=== PATIENT | male | born 1970 | race African-American/Black ===

== ENCOUNTER 2016-09-22 14:59 | Emergency (ER) | payer OTHER ==
[~2016-09-22] VITALS: Ht 180.3 cm; Wt 83.4 kg
[2016-09-22 15:04] VITALS: TEMP 36.4; Ht 180.3 cm; Wt 83.4 kg
[2016-09-22] MEDS ORDERED: SODIUM CHLORIDE 0.9% 1000ML 1,000 ML IV STA (15:13)
--- NOTE | 2016-09-22 15:25 | EMERGENCY ROOM VISIT NOTE ---
History Report prepared by Memo: Chante Randhawa Under the Supervision of: Dr. John Tobias D.O. First contact with patient: 15:07 Chief Complaint: URINARY SYMPTOMS Stated Complaint: RETENTION CANT GET PAST PROSTATE Nursing Triage Summary: pt reports he had uti given antibiotic and prostate swelled unable to urinate on own. last catheted yesterday History of Present Illness The patient is a 46 year old male who presents to the Emergency Room with complaints of constantly beginning unable to urinate for the past 2 days. The patient on Wednesday was diagnosed with a UTI and had a prostate exam done. He was put on antibiotics. The patient denies having trouble urinating before. He was catheterized yesterday. The patient denies over the counter medication use recently or any other symptoms at this time. He is from [facility]. 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 Review of Systems See HPI for pertinent positives & negatives. A total of 10 systems reviewed and were otherwise negative. Past Medical & Surgical Medical Problems: (1) No chronic problems Family History Seizures Social History Smoking Status: Former Smoker Alcohol Use: none Drug Use: none Housing Status: other (Long-Term) Occupation Status: other (Prisoner ) Current/Historical Medications Scheduled Ibuprofen (Motrin), 400 MG PO TID Sulfa/Trimethoprim (Bactrim Ds 800MG/160MG), 1 TAB PO BID Tamsulosin HCl (Tamsulosin HCl), 0.8 MG PO HS Allergies Coded Allergies: No Known Allergies (Unverified , 09/22/16) Physical Exam Vital Signs Date Time Temp Pulse Resp B/P Pulse Ox O2 Delivery O2 Flow Rate FiO2 09/22/16 17:00 63 14 115/71 98 Room Air 09/22/16 15:04 36.4 65 18 120/70 96 Room Air Physical Exam GENERAL: Patient is awake, alert, and in no acute distress. Patient is resting comfortably and showing no signs of anxiety EYES: The conjunctivae are clear. The pupils are round and reactive. EARS, NOSE, MOUTH AND THROAT: The nose is without any evidence of any deformity. Mucous membranes are moist tongue is midline NECK: The neck is nontender and supple. RESPIRATORY: Normal respiratory effort is noted there is no evidence of wheezing rhonchi or rales CARDIOVASCULAR: Regular rate and rhythm noted there no murmurs rubs or gallops normal S1 normal S2 GASTROINTESTINAL: The abdomen is soft. Bowel sounds are present in all quadrants. Abdomen is nontender BACK: No midline tenderness or or step-off noted range of motion in flexion extension as well as rotation no signs of muscle spasm noted MUSCULOSKELETAL/EXTREMITIES: There is no evidence of gross deformity full range of motion is noted in the hips and shoulders SKIN: There is no obvious evidence of any rash. There are no petechiae, pallor or cyanosis noted. NEUROLOGIC: Patient is awake alert and oriented x3 strength is symmetric patellar reflexes are 2+ bilaterally Medical Decision & Procedures Laboratory Results 09/22/16 16:40 Red Blood Count 4.45, Mean Corpuscular Volume 94.4, Mean Corpuscular Hemoglobin 31.5, Mean Corpuscular Hemoglobin Concent 33.3, Mean Platelet Volume 10.5, Neutrophils (%) (Auto) 31.9, Lymphocytes (%) (Auto) 33.4, Monocytes (%) (Auto) 27.0, Eosinophils (%) (Auto) 7.3, Basophils (%) (Auto) 0.2, Neutrophils # (Auto ) 1.39, Lymphocytes # (Auto) 1.46, Monocytes # (Auto) 1.18, Eosinophils # (Auto ) 0.32, Basophils # (Auto) 0.01 09/22/16 16:40 Test 09/22/16 15:55 09/22/16 16:40 Urine Color DK YELLOW Urine Appearance CLEAR (CLEAR) Urine pH 6.0 (4.5-7.5) Urine Specific [place] 1.035 (1.000-1.030) Urine Protein NEG (NEG) Urine Glucose (UA) NEG (NEG) Urine Ketones TRACE (NEG) Urine Occult Blood NEG (NEG) Urine Nitrite NEG (NEG) Urine Bilirubin NEG (NEG) Urine Urobilinogen NEG (NEG) Urine Leukocyte Esterase TRACE (NEG) Urine WBC (Auto) 5-10 /hpf (0-5) Urine RBC (Auto) 0-4 /hpf (0-4) Urine Hyaline Casts (Auto) 1-5 /lpf (0-5) Urine Epithelial Cells (Auto) 10-20 /lpf (0-5) Urine Bacteria (Auto) NEG (NEG) White Blood Count 4.37 K/uL (4.8-10.8) Red Blood Count 4.45 M/uL (4.7-6.1) Hemoglobin 14.0 g/dL (14.0-18.0) Hematocrit 42.0 % (42-52) Mean Corpuscular Volume 94.4 fL (80-100) Mean Corpuscular Hemoglobin 31.5 pg (25-34) Mean Corpuscular Hemoglobin Concent 33.3 g/dl (32-36) Platelet Count 253 K/uL (130-400) Mean Platelet Volume 10.5 fL (7.4-10.4) Neutrophils (%) (Auto) 31.9 % Lymphocytes (%) (Auto) 33.4 % Monocytes (%) (Auto) 27.0 % Eosinophils (%) (Auto) 7.3 % Basophils (%) (Auto) 0.2 % Neutrophils # (Auto) 1.39 K/uL (1.4-6.5) Lymphocytes # (Auto) 1.46 K/uL (1.2-3.4) Monocytes # (Auto) 1.18 K/uL (0.11-0.59) Eosinophils # (Auto) 0.32 K/uL (0-0.5) Basophils # (Auto) 0.01 K/uL (0-0.2) RDW Standard Deviation 44.1 fL (36.4-46.3) RDW Coefficient of Variation 12.7 % (11.5-14.5) Immature Granulocyte % (Auto) 0.2 % Immature Granulocyte # (Auto) 0.01 K/uL (0.00-0.02) Prothrombin Time 11.4 SECONDS (9.0-12.0) Prothromb Time International Ratio 1.1 (0.9-1.1) Activated Partial Thromboplast Time 32.1 SECONDS (21.0-31.0) Partial Thromboplastin Ratio 1.2 Anion Gap 7.0 mmol/L (3-11) Est Creatinine Clear Calc Drug Dose 74.0 ml/min Estimated GFR () 74.8 Estimated GFR (Non- 64.5 BUN/Creatinine Ratio 13.4 (10-20) Calcium Level 8.8 mg/dl (8.5-10.1) Total Bilirubin 0.2 mg/dl (0.2-1) Direct Bilirubin < 0.1 mg/dl (0-0.2) Aspartate Amino Transf (AST/SGOT) 28 U/L (15-37) Alanine Aminotransferase (ALT/SGPT) 36 U/L (12-78) Alkaline Phosphatase 72 U/L (45-117) Total Creatine Kinase 173 U/L (39-308) Creatine Kinase MB 1.8 ng/ml (0.5-3.6) Creatine Kinase MB Ratio 1.0 (0-3.0) Troponin I < 0.015 ng/ml (0-0.045) Total Protein 7.0 gm/dl (6.4-8.2) Albumin 3.3 gm/dl (3.4-5.0) Lipase 69 U/L (73-393) Laboratory results per my review. Medications Administered Medications (Trade) Dose Ordered Sig/Lina Route Start Time Stop Time Status Last Admin Dose Admin Sodium Chloride (Nss 1000ml) 1,000 ml @ 999 mls/hr Q1H1M STAT IV 09/22/16 15:13 09/22/16 16:13 DC 09/22/16 15:13 999 MLS/HR Tamsulosin HCl (Flomax Cap) 0.4 mg NOW ONCE PO 09/22/16 17:15 09/22/16 17:16 DC 09/22/16 17:23 0.4 MG ECG Indication: other (urinary retention) Rate (beats per minute): 59 Rhythm: sinus bradycardia Findings: nonspecific-ST abn (no acute), PVC Comparison ECG Date: no prior available ED Course 1511: The patient was evaluated in room B5. A complete history and physical examination were performed. 1513: Sodium Chloride 1,000 ml @ 999 mls/hr IV. 1715: Flomax Cap 0.4 mg PO. 1745: Upon reevaluation, the patient is hemodynamically stable. I discussed the results and treatment plan with him. He verbalized agreement of the treatment plan. He was discharged home. Medical Decision Prior records/ancillary studies reviewed. Triage Nursing notes reviewed. Differential diagnosis: Etiologies such as renal colic, infections, inflammatory urethritis, prostate pathology, UTI, as well as others were entertained. The patient is a 46-year-old male whose had intermittent problems with urinary retention over the last 3-4 days. The patient was seen at the [facility] at the correction and was started on antibiotics and Flomax. The patient presents to the emergency department today with urinary retention. He does not appear to have signs of urinary tract infection on urinalysis but he has been taking Bactrim for the last few days. The patient had a Iyer catheter placed with good resolution of his symptoms. He does not appear to be an obstructive uropathy. I discussed the patient's laboratory results with him. The patient was given follow-up information for urologist but given his current living situations they may prefer to refer him to a urologist on their own schedule. They were encouraged to continue all medications as prescribed and drink plenty clear liquids. Otherwise she was encouraged to follow-up with urologist as soon as possible. He was also encouraged to return to the emergency department immediately if symptoms change worsen or the need arises. Impression Primary Impression: Urinary retention Scribe Attestation The scribe's documentation has been prepared under my direction and personally reviewed by me in its entirety. I confirm that the note above accurately reflects all work, treatment, procedures, and medical decision making performed by me. Departure Information Dispostion Home / Self-Care Referrals [facility] (PCP) Forms HOME CARE DOCUMENTATION FORM, IMPORTANT VISIT INFORMATION Patient Instructions ED Catheter Care Iyer, ED Retention Urinary Male, My [facility] Additional Instructions Continue all medications as prescribed. Continue taking the Bactrim as well as the Flomax as directed. Call to schedule a follow-up appointment with the urologist. Drink plenty clear liquids.
[2016-09-22] MEDS ORDERED: FLM4 PO (15:26)
[2016-09-22] MEDS ORDERED: IBUP-1459 PO (15:26)
[2016-09-22] MEDS ORDERED: SULF800T23 PO (15:26)
[2016-09-22 16:22] LABS: URINE APPEARANCE CLEAR (CLEAR); URINE COLOR DK YELLOW; URINE NITRITE NEG (NEG); URINE SPECIFIC GRAVITY 1.035 (1.000-1.030); UROBILINOGEN NEG (NEG)
[2016-09-22 16:48] LABS: MANUAL MICROSCOPIC REQUIRED? NO; REVIEW REQ? NO; URINE BILIRUBIN NEG (NEG)
[2016-09-22 16:56] LABS: BASO % 0.2 %; BASO ABS # 0.01 K/uL (0-0.2); COMPLETE YES; EOS % 7.3 %; IG% 0.2 %; LYMPH % 33.4 %; LYMPH ABS # 1.46 K/uL (1.2-3.4); MEAN CELL VOLUME 94.4 fL (80-100); MEAN CORPUSCULAR HEMOGLOBIN 31.5 pg (25-34); MEAN CORPUSCULAR HGB CONC 33.3 g/dl (32-36); MEAN PLATELET VOLUME 10.5 fL (7.4-10.4); NEUT % 31.9 %; PLATELET COUNT 253 K/uL (130-400); RED BLOOD COUNT 4.45 M/uL (4.7-6.1); WHITE BLOOD COUNT 4.37 K/uL (4.8-10.8)
[2016-09-22 17:07] LABS: INR 1.1 (0.9-1.1); PARTIAL THROMBOPLASTIN RATIO 1.2; PROTHROMBIN TIME (PATIENT) 11.4 SECONDS (9.0-12.0)
[2016-09-22] MEDS ORDERED: TAMSULOSIN HCL 0.4 MG CAP PO ONE (17:15)
[2016-09-22 17:23] LABS: ALT/SGPT 36 U/L (12-78); BLOOD UREA NITROGEN 17 mg/dl (7-18); BUN/CREATININE RATIO 13.4 (10-20); CALCIUM 8.8 mg/dl (8.5-10.1); CARBON DIOXIDE 26 mmol/L (21-32); CHLORIDE 108 mmol/L (98-107); GLUCOSE 87 mg/dl (70-99); POTASSIUM 4.3 mmol/L (3.5-5.1); SODIUM 141 mmol/L (136-145)
[2016-09-22 17:29] LABS: ALKALINE PHOSPHATASE 72 U/L (45-117); AST/SGOT 28 U/L (15-37)
[2016-09-22 18:23] VITALS: BP 143/90; PULSE 73; O2SAT 96
== END 2016-09-22 18:26 | disposition home or self-care (01) ==
LOC: C.EDB 15:01
DX: R33.9 Retention of urine, unspecified (principal); Z82.0 Family history of epilepsy and other diseases of the nervous system; Z87.891 Personal history of nicotine dependence; Z79.899 Other long term (current) drug therapy